=== PATIENT | male | born 1995 | race Caucasian/White ===

== ENCOUNTER 2016-10-27 13:50 | Emergency (ER) | payer BC ==
[~2016-10-27] VITALS: Ht 175.3 cm; Wt 72.6 kg
[2016-10-27] MEDS ORDERED: OMEPRAZOLE 20 M20 M1 PO (14:32)
[2016-10-27] MEDS ORDERED: HYOSCYAMINE0.125 MG PO (14:32)
[2016-10-27] MEDS ORDERED: ONDANSETRON HCL4 M2 PO (14:33)
[2016-10-27 15:34] LABS: ABSOLUTE NEUTROPHILS 4.8 thou/uL (1.4-8.2); BASOPHILS 0.6 % (0.0-2.0); EOSINOPHILS 1.3 % (0.0-3.0); HEMATOCRIT 44.4 % (42.0-52.0); HEMOGLOBIN 15.4 gm/dL (14.0-18.0); LYMPHOCYTES 25.4 % (24.0-44.0); MCH 29.9 pg (26.0-34.0); MCHC 34.7 g/dL (28.0-37.0); MCV 86.2 fL (80.0-100.0); MONOCYTES 5.3 % (1.0-8.0); PLATELET COUNT 241 thou/uL (150-400); POLYS 67.4 % (36.0-66.0); RBC 5.15 mil/uL (4.50-6.00); RDW 13.1 % (10.5-14.5); WBC 7.2 thou/uL (4.0-11.0)
[2016-10-27 15:42] LABS: MANUAL DIFF NO
[2016-10-27 15:47] LABS: CALCIUM 9.5 mg/dL (8.5-10.1); CREATININE 1.1 mg/dL (0.7-1.3); POTASSIUM 3.9 mmol/L (3.5-5.1)
[2016-10-27 15:52] LABS: ALBUMIN 4.6 g/dL (3.4-5.0); TOTAL BILIRUBIN 1.5 mg/dL (<0.1-1.0); TOTAL PROTEIN 8.1 g/dL (6.4-8.2)
[2016-10-27 16:35] LABS: URINE BILIRUBIN NEGATIVE (Negative); URINE BLOOD NEGATIVE (Negative); URINE COLOR YELLOW; URINE GLUCOSE-RANDOM* NEGATIVE (Negative); URINE KETONES NEGATIVE (Negative); URINE LEUKOCYTES-REFLEX NEGATIVE (Negative); URINE PROTEIN (DIPSTICK) NEGATIVE (Negative); URINE SPECIFIC GRAVITY 1.015 (1.003-1.035); URINE UROBILINOGEN 0.2 E.U./dl (0.2-1.0)
[2016-10-27 16:37] LABS: SSA (PROTEIN CONFIRMATORY) NEGATIVE (Negative)
[2016-10-27] MEDS ORDERED: PHENERGAN 25 MG25 M1 PO (17:12)
[2016-10-27] MEDS ORDERED: MIRALAX17 GM PO (17:19)
[2016-10-27 17:36] VITALS: BP 115/73
== END 2016-10-27 17:38 | disposition home or self-care (01) ==
LOC: ER 13:50
PROVIDERS: Emergency Medicine
DX: K59.00 Constipation, unspecified (principal); G89.29 Other chronic pain; R10.84 Generalized abdominal pain; Z88.0 Allergy status to penicillin

== ENCOUNTER → 2017-05-16 | Outpatient (CLI) | payer BC ==
[~2017-05-16] MED LIST: HYOSCYAMINE0.125 MG PO; MIRALAX17 GM PO; OMEPRAZOLE 20 M20 M1 PO; ONDANSETRON HCL4 M2 PO; PHENERGAN 25 MG25 M1 PO
== END ==
LOC: MRI 09:38
DX: M25.552 Pain in left hip (principal)

== ENCOUNTER → 2020-07-07 | Outpatient (CLI) | payer OTHER | LOC: RAD 11:43 | PROVIDERS: ATTEND Family Medicine | DX: M41.84 Other forms of scoliosis, thoracic region (principal) ==

== ENCOUNTER → 2020-07-20 | Outpatient (CLI) | payer OTHER | LOC: MRI 06-28 09:47 | PROVIDERS: ATTEND Family Medicine | DX: M54.12 Radiculopathy, cervical region (principal); M54.6 Pain in thoracic spine ==

== ENCOUNTER → 2020-08-03 | Outpatient (CLI) | payer OTHER ==
[~2020-08-03] VITALS: Ht 175.3 cm; Wt 81.6 kg
[~2020-08-03] MED LIST changes: +BACLOFEN 10MG T10 MG PO; +CYMBALTA60 MG PO; +LORAZEPAM 2MG TA2 M1 PO; +NEURONTIN 300M300 M2 PO; +NORCO 10-325 T1 EACH PO
--- NOTE | ~2020-08-03 | HPC ---
[facility] [address] [place] [address] PAIN MANAGEMENT CONSULTATION Name: VIANNEY TROTTER Room #: REG CLAsaf BeachWoodyYvonne.#: [id number] Admission: 08/03/20 Attend Phys: Bharat Henderson DO Discharge: Date of : 89 Report #: [id number] THIS REPORT FOR: cc: Maggie Chun MD, Nora P. MD Johnson, James E. DO ~ DATE OF SERVICE: 08/03/2020 CHIEF COMPLAINT: Mid back pain. HISTORY OF PRESENT ILLNESS: As you know, the patient is a very pleasant 25-year-old male, reporting acute onset of mid back pain, presenting 11/12/2019. The patient denies any specific injury or trauma that may have led to symptom development. He believes he may have exacerbated symptoms while moving furniture, but is unable to determine specifically whether or not that was the source of symptoms. He has been experiencing pain since that time. The patient states his pain is completely resolved in the morning hours and exacerbates throughout the day without inciting injury or trauma. By evening and night, he states his pain is the worst. He is locating pain in the paraspinal musculature of the thoracic spine. He has undergone imaging studies to address concerns of cervical radiculopathy and subsequently referred to our clinic as he was not seeing much in the way of improvement with conservative treatment. The patient reports today his pain is steady and periodic, describes the pain as sharp and cramping. He places current pain score 4/10, daily average of 4/10, worst pain has been 7/10. The patient states that deep breathing and exercise tends to exacerbate symptoms; lying down tends to improve pain. He has been referred to our service to discuss treatment options for mid back pain. PAST MEDICAL HISTORY: None. PAST SURGICAL HISTORY: 1. Chauncey teeth extraction. 2. Labral hip repair. 3. Sinus surgery. 4. Tonsillectomy. SOCIAL HISTORY: The patient denies tobacco, alcohol, IV or illicit drug use. He is an investment real estate lawyer. He is working, not receiving workmen's compensation nor is he trying to obtain disability benefits. He is not in litigation in regard to pain. He is unaccompanied at today's visit. ALLERGIES: PENICILLIN, AMOXICILLIN. CURRENT MEDICATIONS: Gabapentin 300 mg p.o. at bedtime, hydrocodone/acetaminophen 10/325 one tab p.o. q.8 hours p.r.n. for pain, [address] [address] PAIN MANAGEMENT CONSULTATION Name: VIANNEY TROTTER [facility] [id number] Admission: 08/03/20 Attend Phys: Bharat Henderson DO Discharge: Date of : 94 Report #: [id number] lorazepam 2 mg p.o. at bedtime, duloxetine 60 mg once a day. REVIEW OF SYSTEMS: Positive for only mid back pain and depression. All other review of systems negative per 12-point review of systems other than those listed in history of present illness. Pain impact score 22/70 indicating mild to moderate interference of daily activities secondary to pain. IMAGING: MRI of the cervical spine obtained 07/20/2020 shows no disk bulge, no central canal or neural foraminal stenosis throughout the cervical region. X-ray of the thoracic spine shows minimal upper left thoracic scoliosis centered around T3 and T4 levels. Minimal right lateral wedging of T4. There does show report of elevation of the left first rib relative to right first rib. This appears to be related to positioning. PHYSICAL EXAMINATION: VITAL SIGNS: Blood pressure 105/83, pulse 85, respiratory rate 14 and unlabored. The patient is 100% on room air. Height 5 feet 9 inches tall, weight 180 pounds, BMI calculated 26.6. GENERAL: Well-developed, well-nourished, well-hydrated 25-year-old male, who appears his stated age. He is in no acute distress, awake, alert and oriented x 3. Current pain score is rated at 4/10. HEENT: Normocephalic, atraumatic. Pupils equal, round and reactive to light. Extraocular muscles are intact. NEUROLOGIC: Speech is fluent. The patient is wearing a mask in compliance with COVID-19 regulations. LUNGS: Appear clear. No wheeze, rhonchi or rales. CARDIOVASCULAR: Regular. No appreciable gallop, no rub. ABDOMEN: Soft, nontender, nondistended, normoactive bowel sounds. EXTREMITIES: Show no clubbing, no cyanosis, no appreciable edema. MUSCULOSKELETAL: Palpatory tenderness is noted over the paraspinal musculature of the thoracic spine. This involving the trapezius, longissimus, semispinalis and iliocostalis muscles. There is no spinous process tenderness. He is intact to light touch from T1 through T12 dermatomes. There is no atrophy of the musculature of the thoracic spine. There is no radiation of symptoms in a radicular fashion. Upper extremity and lower extremity strength are equal and symmetrical. ASSESSMENT: 1. Myofascial pain. 2. Chronic mid back pain. PLAN: Based on today's physical exam and history the patient has provided, the description the patient uses in regards to pain as well as location of symptoms, [address] [address] PAIN MANAGEMENT CONSULTATION Name: VIANNEY TROTTER [facility] [id number] Admission: 08/03/20 Attend Phys: Bharat Henderson DO Discharge: Date of : 89 Report #: [id number] it would appear the patient is suffering from myofascial symptoms. The patient and I went over his MRI of the cervical spine, which is completely normal. There is no neural foraminal stenosis, no central canal stenosis or even arthritic changes. His thoracic imaging is essentially unremarkable except for minimal upper left thoracic scoliosis, which contributes to no changes in mechanics. It would appear that the patient's myofascial symptoms are related more to his activity of daily living. 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 He has classic myofascial symptoms related to poor ergonomics at the work place, which is consistent with the patient's symptoms today. We discussed the following treatment options: 1. The patient and I discussed adjusting his work space for improved ergonomics. The hunching that the patient does during the daytime hours as his vision begins to fatigue with looking at the computer screen, it is causing increased strain of the thoracic musculature, whose typical task is to maintain thoracic kyphosis, but also retract the shoulders allowing for improved biomechanics of the anterior chest, allowing for improved oxygenation. These musculatures are consistent with this hunching sensation the patient has been participating in as his eyes fatigue. Adjustments in his computer monitor would make most consistent change in his desk situation allowing him to maintain normal posture while working on a computer. We discussed this with the patient today. He will make those adjustments tonight. 2. The patient and I did discuss the use of a muscle relaxant assuming it is not sedative to address his muscle spasming. We recommend baclofen 10 mg dose 1 tab p.o. b.i.d. to t.i.d. as needed. I have given the patient #60 tablets, no refills. The patient was advised not to drive or operate heavy equipment while on this medication. 3. The patient and I did discuss the possibility of obtaining a new chair for his work station. He is currently using a alin chair, which is in a more reclined position. The patient is unable to use the back of the chair to maintain stability. He has to lean forward in that chair and this I believe is the source of his myofascial symptoms. By adjusting his chair to a more ergonomically designed office chair for sitting and computing would be most appropriate. 4. We did discuss the possibility of undergoing trigger point injections. At this time, the patient wishes to trial the conservative treatment before moving forward. We will set the patient an appointment in about 3 weeks. We will discuss the possibility of undergoing those procedures at that visit if necessary. The patient is agreeable with plan. 5. We wish to thank Dr. Maggie Chun for the opportunity to see this patient in consultation. We will keep you apprised of his response to treatment as we [address] [address] PAIN MANAGEMENT CONSULTATION Name: VIANNEY TROTTER Room #: REG CLI Daly#: [id number] Admission: 08/03/20 Attend Phys: Bharat Henderson DO Discharge: Date of : 94 Report #: [id number] address myofascial pain. Again, we wish to thank you for the opportunity to see the patient in consultation. By: [id number] Bharat Henderson DO /parris
[2020-08-03 13:52] VITALS: BP 105/83
--- NOTE | 2020-08-03 14:25 | NUR ---
Pain Clinic Assessment: 1. History of Osteoarthritis: Not Applicable History of Rheumatoid Arthritis: Not Applicable 2. Height: 5 ft. 9 in. 175.3 cm. Weight: 180.0 lb. oz. 81.648 kg. Patient's BMI: 26.6 3. Vital Signs: BP: 105/83 Pulse: 85 Resp: 14 Temp: 02 Sat: 100 ECG Mon: 4. Pain Intensity: 4 5. Fall Risk: Dizziness: Y Needs help standing or walking: N Fallen in the last 3 months: N Fall risk comments: 6. Patient on Blood Thinner: None 7. History of Hypertension: N 8. Opioid Therapy greater than 6 weeks: Y Opiate Contract Signed: 9. Risk Assessment Tool Provided: LOW 10. Functional Assessment Tool: 11. Recreational Drug Use: Past greater than 3 mos Drug Type: KRATOM Tobacco Use: Never Smoker Tobacco Type: Amount or Packs/day: How Many Years: Alcohol Use: No Frequency: Quant:
== END ==
LOC: PAIN 07:49
PROVIDERS: ATTEND Anesthesiology Pain Medicine
DX: M54.9 Dorsalgia, unspecified (principal); G89.29 Other chronic pain; M79.10 Myalgia, unspecified site; Z88.8 Allergy status to other drugs, medicaments and biological substances; Z79.899 Other long term (current) drug therapy